=== PATIENT | male | born 1965 | race Hispanic/Latino ===

== ENCOUNTER 2025-03-19 16:34 | Emergency (ER) | payer SELFPAY ==
[~2025-03-19] VITALS: Ht 175.3 cm; Wt 65.8 kg
--- NOTE | 2025-03-19 17:21 | NUR ---
PENDING GFR RESULTS, IV SITE, & CONSENT FOR CT EXAM. CHARGE NURSE NOTIFIED.
[2025-03-19 17:27] LABS: IMMATURE GRANULOCYTE ABSOLUTE 0.06 K/uL (0-1); NUCLEATED RED BLOOD CELLS 0.0 % (0.0-0.19); PLATELET COUNT (AUTO) 296 K/uL (130-400); RED BLOOD CELL COUNT(AUTO) 4.68 MIL/uL (4.50-6.20); RED CELL DISTRIBUTION WIDTH 13.1 % (11.0-15.5); WHITE BLOOD COUNT (AUTO) 15.9 K/uL (4.8-10.8)
[2025-03-19] MEDS: 0.9%NACL 1000ML 1,000 ML IV ONE (17:30)
[2025-03-19 17:39] LABS: CREATININE 1.4 mg/dL (0.5-1.3); GLOMERULAR FILTR. RATE CALC 57.0 mL/min (>90); GLUCOSE,RANDOM 112.0 mg/dL (70-105); SODIUM SERUM 134.0 mmol/L (136-145); UREA NITROGEN, BLOOD 19.0 mg/dL (7-18)
[2025-03-19 17:46] LABS: ASPARTATE AMINOTRANSFERASE 43.0 U/L (10-37); TOTAL PROTEIN, SERUM 8.0 g/dL (6.0-8.3)
[2025-03-19] MEDS ORDERED: IOHEXOL-350 75 ML VIAL IV ONE (17:50)
--- NOTE | 2025-03-19 18:00 | NUR ---
PT IS IN CT AT THIS TIME
[2025-03-19 18:55] VITALS: BP 109/63; PULSE 56; RESP 18; TEMP 97.9; O2SAT 99
--- NOTE | 2025-03-19 19:01 | NUR ---
PT WENT TO RESTROOM STATES FELT WET TO RECTUM PUS LIKE FLUID WHEN WIPED.
[2025-03-19 19:17] LABS: APPEARANCE,URINE CLEAR (CLEAR); GLUCOSE, URINE (UA) NEGATIVE (NEGATIVE); LEUKOCYTE ESTERASE ,URINE NEGATIVE Leu/uL (NEGATIVE); NITRATE,URINE NEGATIVE (NEGATIVE); OCCULT BLOOD,URINE NEGATIVE (NEGATIVE)
[2025-03-19 19:18] LABS: ADD UA MICROSCOPIC NO
--- NOTE | 2025-03-19 19:19 | HMCIMG ---
EXAM: CT Abdomen and Pelvis with IV Contrast. CLINICAL HISTORY: Pain. TECHNIQUE: Axial computed tomography images of the abdomen and pelvis with intravenous contrast. CONTRAST: With intravenous contrast. COMPARISON: None provided. FINDINGS: LUNG BASES: The lung bases appear clear. No pleural effusions are seen. LIVER: Unremarkable. GALLBLADDER AND BILE DUCTS: The gallbladder appears within normal limits. No radiopaque gallstones are seen. No biliary ductal dilatation is evident. PANCREAS: Unremarkable. SPLEEN: Unremarkable. ADRENAL GLANDS: Unremarkable. KIDNEYS, URETERS, AND BLADDER: The kidneys appear within normal limits. There is no hydronephrosis or hydroureter. A non-obstructive calculus measuring 5.3 mm is seen in the lower pole of the left kidney. STOMACH AND BOWEL: Unremarkable appearance of the stomach and bowel. No evidence of bowel obstruction. Moderate circumferential wall thickening seen at the proximal to mid sigmoid colon superimposed upon diverticuli likely affecting diverticulitis. There is no pneumatosis intestinalis, pneumoperitoneum, or portal venous gas. There is no associated fluid collection. APPENDIX: No evidence of acute appendicitis on CT examination. PERITONEUM: No free fluid. No free air. LYMPH NODES: No lymphadenopathy is evident. REPRODUCTIVE: The prostate is moderately enlarged in size with median lobe hypertrophy. VASCULATURE: No evidence of abdominal aortic aneurysm. BONES: No aggressive-appearing osseous lesion. No acute osseous pathology evident.IMPRESSION: 1. Sigmoid diverticulitis with moderate circumferential wall thickening. /[place]
--- NOTE | 2025-03-19 19:38 | NUR ---
PATIENT STATED HE DID NOT WANT TO BE ADMITTED TO THE HOSPITAL, [facility] AT BEDSIDE. PATIENT REPORTED HE WILL BE LEAVING AGAINST MEDICAL ADVICE. PATIENT REFUSED ANTIBIOTIC ORDERED. PATIENT WAS EDUCATED AND VERBALIZED UNDERSTANDING OF THE RISKS AND CONSEQUENCES INVOLVED IN LEAVING THE HOSPITAL AT THIS TIME, INCLUDING , THE BENEFITS OF CONTINUED TREATMENT AND HOSPITLIZATION, AND THE ALTERNATIVES, AMA FORM SIGNED BY PATIENT. PATIENT IS IN NO DISTRESS AT THIS TIME, PATIENT ADVICED TO FOLLOW UP WITH PCP, SEEK EMERGENCY HELP OR RETURN IF NEEDED. CHARGE NURSE, MLEANY CATHERINE MADE AWARE.
[2025-03-19] MEDS ORDERED: AMOX1TAB16 PO (19:42)
--- NOTE | 2025-03-19 19:42 | ERN ---
ED Note History of Present Illness Stated Complaint: RECTAL PROBLEM Chief Complaint: Other Problems Time Seen by MD: 16:38 Time Seen by Midlevel: 16:39 Dictation: 60-year-old male who presents to the emergency department due to reported having abdominal pain to the left lower quadrant along with rectal pain that began yesterday. He denies having any fever associated with this. However, he does report having chills. Patient states that he is concerned over having pain to the affected area. The abdominal pain along with the rectal pain is described as sharp in nature which he rates as a 6/10. Currently, he denies having any n ausea or vomiting. Upon initial evaluation, the patient presents mildly uncomfortable looking. Allergies: Coded Allergies: No Known Drug Allergies (Unverified Allergy, Unknown, 03/19/25) Emergency Care CAD DRAFTER: None Home Meds Active Scripts Amoxicillin/Potassium Clav (Amox Tr-K Clv 875-125 mg Tab) 875 Mg-125 Mg Tablet, 1 EACH PO BID for 7 Days, #14 TAB 0 Refills Prov:JOSÉ KAHN 03/19/25 Past Medical History Past Medical History: No Pertinent History Surgical History: None PSYCH History: no pertinent psych hx RN Note Reviewed/Agreed w/PFSH: Yes Review of System Dictation Constitutional: Balaji Abdomen/GI: Abdominal pain, rectal pain Initial Vital Sign VS Vital Signs Date Time Temp Pulse Resp B/P (MAP) Pulse Ox O2 Delivery O2 Flow Rate FiO2 03/19/25 16:37 97.9 66 16 115/73 99 Room Air 03/19/25 17:45 0 21 Physical Exam Dictation General: awake, alert, NAD Head/Face: Normocephalic, atraumatic Eyes: PERRL, EOMI ENT: Oral mucosa moist Neck: Trachea midline, supple Cardiovascular: RRR, no edema Respiratory: Symmetrical, non-labored Abdomen: Soft, left lower quadrant tenderness with voluntary guarding, external hemorrhoid, non-distended, no guarding. Skin: Warm, dry, good turgor, no rash MS/Extremity: Pulses equal, no cyanosis, neurovascular intact, FROM Neuro: COAx4, GCS 15, steady gait, Psych: Normal behavior, mood, and affect normal Results (Laboratory/Radiology) Laboratory/Radiology Laboratory Tests Test 03/19/25 17:21 03/19/25 18:55 White Blood Count 15.9 K/uL (4.8-10.8) H Red Blood Count 4.68 MIL/uL (4.50-6.20) Hemoglobin 14.0 g/dL (14.0-18.0) Hematocrit 42.2 % (42-54) Mean Corpuscular Volume 90.2 fL (79-99) Mean Corpuscular Hemoglobin 29.9 pg (27.0-33.0) Mean Corpuscular Hemoglobin Concent 33.2 g/dL (32.0-36.0) Red Cell Distribution Width 13.1 % (11.0-15.5) Platelet Count 296 K/uL (130-400) Mean Platelet Volume 9.3 fL (7.5-10.5) Immature Granulocyte % (Auto) 0.4 % (0-1) Neutrophils (%) (Auto) 84.3 % (40.0-77.0) H Lymphocytes (%) (Auto) 9.6 % (21.0-51.0) L Monocytes (%) (Auto) 5.0 % (3.0-13.0) Eosinophils (%) (Auto) 0.3 % (0.0-8.0) Basophils (%) (Auto) 0.4 % (0.0-5.0) Neutrophils # (Auto) 13.4 K/uL (1.8-7.7) H Lymphocytes # (Auto) 1.5 K/uL (1.0-4.8) Monocytes # (Auto) 0.8 K/uL (0.1-1.0) Eosinophils # (Auto) 0.04 K/uL (0.00-0.70) Basophils # (Auto) 0.06 K/uL (0.00-0.20) Absolute Immature Granulocyte (auto 0.06 K/uL (0-1) Nucleated Red Blood Cells 0.0 % (0.0-0.19) White Cell Morphology Comment See comments Sodium Level 134 mmol/L (136-145) L Potassium Level 3.8 mmol/L (3.5-5.1) Chloride Level 97 mmol/L (101-111) L Carbon Dioxide Level 31 mmol/L (21-32) Blood Urea Nitrogen 19 mg/dL (7-18) H Creatinine 1.4 mg/dL (0.5-1.3) H Glomerular Filtration Rate Calc 57 mL/min (>90) Random Glucose 112 mg/dL (70-105) H Total Calcium 8.9 mg/dL (8.5-10.1) Total Bilirubin 0.5 mg/dL (0.2-1.0) Aspartate Amino Transf (AST/SGOT) 43 U/L (10-37) H Alanine Aminotransferase (ALT/SGPT) 66 U/L (12-78) Alkaline Phosphatase 115 U/L (50-136) Total Protein 8.0 g/dL (6.0-8.3) Albumin 3.6 g/dL (3.5-5.0) Urine Color COLORLESS (YELLOW) Urine Appearance CLEAR (CLEAR) Urine pH 5.5 (5.0-8.0) Urine Specific [place] 1.044 (1.001-1.031) Urine Protein NEGATIVE mg/dL (NEGATIVE) Urine Glucose (UA) NEGATIVE mg/dL (NEGATIVE) Urine Ketones NEGATIVE mg/dL (NEGATIVE) Urine Occult Blood NEGATIVE (NEGATIVE) Urine Nitrate NEGATIVE (NEGATIVE) Urine Bilirubin NEGATIVE mg/dL (NEGATIVE) Urine Urobilinogen 0.2 mg/dL (0.2-1.0) Urine Leukocyte Esterase NEGATIVE Seda/uL Labs Reviewed?: Yes CT Scan Comment: CT abdomen/pelvis with IV contrast revealing an acute sigmoid diverticulitis as per radiologist's interpretation. ED Course ED Course Orders Procedure Category Date Status Time Cbc With Differential LAB 03/19/25 Complete 16:55 Comprehensive LAB 03/19/25 Complete Metabolic Panel 16:55 Urinalysis Profile LAB 03/19/25 Complete 16:55 Ct Abdomen/Pelvis CT 03/19/25 Resulted W/Contrast 16:55 Ketorolac PHA 03/19/25 Complete Tromethamine 30mg/Ml 17:00 0.9%Nacl 1000ml (Ns PHA 03/19/25 Complete 1000ml) 17:00 Iohexol (Omnipaque) PHA 03/19/25 Complete 17:50 Zosyn 3.375gm+Ns 50ml PHA 03/19/25 Complete (Zosyn 3.375gm+Ns 19:30 Current Medications Medications (Trade) Dose Ordered Sig/Flavia Route PRN Reason Start Time Stop Time Status Last Admin Dose Admin Iohexol (Omnipaque) 75 ml STK-MED ONCE IV 03/19/25 17:50 03/19/25 17:50 DC Ketorolac Tromethamine (toRADol) 30 mg ONCE ONCE IVP 03/19/25 17:00 03/19/25 17:01 DC 03/19/25 17:30 Piperacillin Sod/ Tazobactam Sod (Zosyn 3.375gm+NS 50ml) 3.375 gm ONCE ONCE IVPB 03/19/25 19:30 03/19/25 19:31 DC Sodium Chloride 1,000 ml @ 0 mls/hr ONCE ONCE IV 03/19/25 17:00 03/19/25 17:01 DC 03/19/25 17:30 Vital Signs Date Time Temp Pulse Resp B/P (MAP) Pulse Ox O2 Delivery O2 Flow Rate FiO2 03/19/25 18:55 97.9 56 18 109/63 99 Room Air* 0 21 03/19/25 17:45 97.9 57 18 106/62 100 Room Air* 0 21 03/19/25 16:37 97.9 66 16 115/73 99 Room Air Medical Decision Making MDM MDM: Differential diagnosis: Acute sigmoid diverticulitis, acute abdominal pain, rectal abscess Rationale: Tests considered and ordered secondary to shared decision making include: Previous outside records reviewed: Old ER visits. Risk of complication and/or morbidity or mortality of patient management: None Medications-Per medication reconciliation Need for hospitalization: Patient does not meet criteria for hospitalization. Need for emergency major/minor surgery: No There are no social concerns with this patient. Prescription drug management Prescriptions will include symptomatic care Patient's prior external medical records from other ER visits were reviewed by me as indicated. Prior testing and results from previous visits were reviewed. Prior tests were taken into account with medical decision making and resource utilization, independent historian/historians were used to obtain complete medical history. I independently interpreted the test that were performed, results were reviewed by me and considered findings on radiology if ordered. Medical management and examination interpretation discussions were had by me with other qualified healthcare professionals as indicated for the patient's care. Patient states that he is unable to stay and after having a detailed conversation with him about the potential complication associated with diverticulitis such as rupture and perforation and for which might throw in his life he verbalized understanding but states that she is unable to stay and will return here if need be. DX & DISP Disposition: AMA Departure Impression: Primary Impression: Sigmoid diverticulitis Additional Impression: External hemorrhoid Condition: Stable Scripts Amoxicillin/Potassium Clav (Amox Tr-K Clv 875-125 mg Tab) 875 Mg-125 Mg Tablet 1 EACH PO BID for 7 Days, #14 TAB 0 Refills Prov: JOSÉ KAHN 03/19/25 Referrals: SELF,REFERRAL (PCP) Time of Disposition: 19:42 JOSÉ KAHN Mar 19, 2025 19:42 JOSE SOLANO DO Mar 20, 2025 07:00
[2025-03-19] MEDS: ZOSYN 3.375GM +NS 50ML IVPB ONE (19:44)
== END 2025-03-19 19:38 | disposition left against medical advice (07) ==
LOC: EDH 16:34
DX: K57.32 Diverticulitis of large intestine without perforation or abscess without bleeding (principal); K64.4 Residual hemorrhoidal skin tags
CPT/HCPCS: 99285; 74177; 96374; 96361; 80053; 85025; 81003; 36415; J1885; J7030; Q9967; 96375